=== PATIENT | female | born 1940 | race Caucasian/White ===

== ENCOUNTER → 2017-08-03 | Outpatient (CLI) | payer MEDICARE ==
[2016-12-22 08:38] VITALS: BMI 32.7
[~2017-08-03] MED LIST: ASPI-764 PO; CALC-857 PO; CHOL10005 PO; HYDR-4308 PO; METF-410 PO; TURM500C4 PO
[2017-08-03 09:25] LABS: PLATELET COUNT, AUTOMATED 190 K/uL (150-450)
== END ==
LOC: LAB 08:48
PROVIDERS: ATTEND Orthopaedic Surgery
DX: Z01.812 Encounter for preprocedural laboratory examination (principal); M17.11 Unilateral primary osteoarthritis, right knee; N39.0 Urinary tract infection, site not specified; E11.9 Type 2 diabetes mellitus without complications; R82.79 Other abnormal findings on microbiological examination of urine
CPT/HCPCS: 36415; 81001; 82040; 82247; 82310; 82374; 82435; 82565; 82947; 83036; 84075; 84132; 84155; 84295; 84450; 84460; 84520; 85025; 87088

== ENCOUNTER 2017-08-16 02:45 | Observation (INO) | payer MEDICARE ==
[2017-08-15 14:07] LABS: INR 0.97
[~2017-08-16] VITALS: Ht 149.9 cm; Wt 73.9 kg
[2017-08-16] VITALS (15 sets, daily range): BP systolic 112–154; BP diastolic 57–105
[2017-08-16] MEDS ORDERED: LIDOCAINE MPF 1% 5 ML VIAL ONE (13:04)
[2017-08-16] MEDS ORDERED: fentaNYL CITR 100 MCG/2 ML AMP ONE (13:04)
[2017-08-16] MEDS ORDERED: ONDANSETRON 4 MG/2 ML VIAL ONE (13:04)
[2017-08-16] MEDS ORDERED: DEXAMETHASONE SOD 4 MG/ML VIAL ONE (13:04)
[2017-08-16] MEDS ORDERED: PROPOFOL EMUL(*) 10MG/ML 20 ML 20 ML ONE (13:04)
[2017-08-16] MEDS ORDERED: NORMOSOL R SOLN(*) 1000 ML BAG 1,000 ML IV PRN ×2 (14:15→17:45)
[2017-08-16] MEDS ORDERED: LIDOCAINE/SOD BICARB 8.4% SYR ID ONE (14:15)
[2017-08-16] MEDS ORDERED: cloNIDine EPIDUR INJ 100MCG/ML 40 MCG, ROPIVACAINE 0.5% 20 ML VIAL 25 ML, EPINEPHrine H... INJ ONE (14:15)
[2017-08-16] MEDS ORDERED: TRANEXAMIC AC 1000 MG/10ML SDV 1,000 MG in DEXTROSE 5% 50 ML BAG 50 ML IV ONE (14:15)
[2017-08-16] MEDS ORDERED: CLINDAMYCIN(*) 900 MG/NS 50 ML 50 ML IVPB ONE (14:15)
[2017-08-16] MEDS ORDERED: MIDAZOLAM 2 MG/2 ML VIAL IVP PRN (14:15)
[2017-08-16] MEDS ORDERED: FAMOTIDINE 20 MG TAB PO ONE (14:15)
[2017-08-16] MEDS ORDERED: MORPHINE PF 5 MG/10 ML AMP ONE (14:42)
[2017-08-16] MEDS ORDERED: KETAMINE HCL 200 MG/20 ML MDV ONE (14:50)
[2017-08-16] MEDS ORDERED: NS 0.9% 3000 ML IRRIGATION BAG IR ONE (15:27)
[2017-08-16] MEDS ORDERED: NS 0.9% IRRIGATION 1000ML PLCT IR ONE (15:31)
[2017-08-16] MEDS ORDERED: ePHEDrine 25 MG/5 ML DISP.SYR IVP ONE (15:33)
--- NOTE | 2017-08-16 17:19 | RADIOLOGY IMAGING REPORT ---
FACILITY: [facility] PATIENT NAME: Lindsay Rush : 1940 MR: [id number] V: [id number] EXAM DATE: [id number] ORDERING PHYSICIAN: ASPEN MONK TECHNOLOGIST: [facility] Patient: Lindsay Rush : 1940 Visit/Account:[id number] Date of Sevice: 08/16/2017 Exam type: 2 views right knee History: Status post right knee arthroplasty Comparison: None. Findings: Postoperative changes are noted from right knee arthroplasty without hardware complication. Patient i s remarkably osteopenic. Air within the joint is noted. Subcutaneous air is also noted. IMPRESSION: 1. Postoperative changes are noted from right knee arthroplasty without hardware complication. 2. Osteopenia. Report Dictated By: Jori Chavez MD at 08/16/2017 5:15 PM Report E-Signed By: Jori Chavez MD at 08/16/2017 5:16 PM WSN:[id number]
[2017-08-16] MEDS ORDERED: FLUSH 10 ML SYR IVP PRN (17:45)
[2017-08-16] MEDS ORDERED: NALOXONE HCL 0.4 MG/ML VIAL IVP PRN ×2 (17:45→17:55)
[2017-08-16] MEDS ORDERED: BISACODYL 10 MG SUPP PR PRN (17:45)
[2017-08-16] MEDS ORDERED: MORPHINE SULFATE 30 MG PCA IV PRN (17:45)
[2017-08-16] MEDS ORDERED: ONDANSETRON 4 MG/2 ML VIAL IVP PRN ×2 (17:45→17:55)
[2017-08-16] MEDS ORDERED: MAGNESIUM HYDROXIDE* 30ML UDCP PO PRN (17:45)
[2017-08-16] MEDS ORDERED: NALBUPHINE HCL 10 MG/ML AMP IVP PRN (17:55)
[2017-08-16] MEDS ORDERED: diphenhydrAMINE 25 MG CAP PO PRN (17:55)
[2017-08-16] MEDS: ACETAMINOPHEN 325 MG TAB PO SCH (18:09)
--- NOTE | 2017-08-16 20:32 | Hospitalist Consultation ---
History of Present Illness Requesting Physician Dr. Patel Reason for Consult Diabetes mellitus History of Present Illness This patient was admitted for knee replacement surgery. It is reported that the surgery went well and was without complication. History Problems: (1) DM2 (diabetes mellitus, type 2) Home Meds Reported Medications Calcium Citrate/Vitamin D3 (CITRACAL-VIT D 200 MG-250 TAB) 1 Each Tablet, 2 EACH PO DAILY 12/14/16 Cholecalciferol (Vitamin D3) (VITAMIN D3) 1,000 Unit Tablet, 1000 UNIT PO DAILY , TAB 12/14/16 Metformin Hcl (METFORMIN HCL) 500 Mg Tablet, 1 TAB PO QDAY, TAB 12/14/16 Discontinued Reported Medications Hydrocodone Bit/Acetaminophen (NORCO 7.5-325 TABLET) 1 Each Tablet, 1-2 EACH PO Q6H for PAIN, #60 12/24/16 Turmeric Root Extract (Turmeric) 500 Mg Capsule, 1000 PO QDAY 12/14/16 Discontinued Scripts Aspirin (ASPIRIN EC) 325 Mg Tablet., 325 MG PO QDAY for 30 Days, #30 TAB 0 Refills Take one aspirin daily for 30 days following surgery. Prov:AVIS JOHNS MD 12/24/16 Allergies: Coded Allergies: amoxicillin (Verified Allergy, Mild, RASH, 12/14/16) Sulfa (Sulfonamide Antibiotics) (Verified Adverse Reaction, Mild, STOMACH UPSET , 12/14/16) tramadol (Verified Adverse Reaction, Mild, NAUSEA , 08/12/17) corn (Verified Adverse Reaction, Unknown, STOMACH UPSET , 12/14/16) Patient History: FH: dementia MOTHER FH: diabetes mellitus GRANDMOTHER FH: lung cancer FATHER Hx Smoking: No Smoking Status: Never Smoker Exposure to Second Hand Smoke?: Yes (NOT CURRENTLY PARENTS WERE SMOKERS ) Caffeine Intake: Coffee Caffeine/Cups Per Day: 1 CUP A DAY Hx Alcohol Use: No Hx Substance Use Disorder: No Social Drug Use: Never History of IV Drug Use: No Review of Systems All Systems Reviewed/Normal: Yes Exam Vital Signs Vital Signs Date Time Temp Pulse Resp B/P (MAP) Pulse Ox O2 Delivery O2 Flow Rate FiO2 08/16/17 19:15 83 139/78 (98) Nasal Cannula 3.0 08/16/17 18:30 98.2 12 90 Neuro: No Gross deficits Cardiovascular: Regular Rate and Rhythm Respiratory: Clear to Auscultation Extremities: No Edema Integumentary: No Cyanosis Assessment and Plan Problems: (1) S/P knee replacement Assessment & Plan: She is on aspirin prophylaxis. (2) DM2 (diabetes mellitus, type 2) Assessment & Plan: She is on chronic treatment with metformin. We have also ordered fingerstick glucoses and sliding scale level 1. Venous Thromboembolism Antithrombotics Is Pt On Any Antithrombotics?: No ILIANA HASSAN DO Aug 16, 2017 20:32
[2017-08-16] MEDS: PROMETHAZINE 25 MG/ML 1 ML AMP IVP PRN (21:55)
[2017-08-16] MEDS: INSULIN HUM LISPRO 100 UN/ML 3 ML VIAL SUBQ PRN (22:00)
[2017-08-16] MEDS ORDERED: CLINDAMYCIN 600 MG/4 ML 600 MG in DEXTROSE 5% 50 ML BAG 50 ML IVPB SCH (22:00)
[2017-08-16] MEDS ORDERED: CINN1CAP PO (22:16)
[2017-08-16] MEDS: CLINDAMYCIN(*) 600 MG/NS 50 ML 50 ML IVPB SCH (22:27)
[2017-08-17] VITALS (8 sets, daily range): BP systolic 105–140; BP diastolic 51–81; Ht 149.9 cm; Wt 73.9 kg
[2017-08-17] MEDS: ACETAMINOPHEN 325 MG TAB PO SCH ×5 (00:16→23:44)
[2017-08-17] MEDS ORDERED: CLINDAMYCIN 600 MG/4 ML 600 MG in DEXTROSE 5% 50 ML BAG 50 ML IVPB SCH (01:00)
[2017-08-17] MEDS: oxyCODONE HCL 5 MG CAP PO PRN ×4 (01:54→23:44)
[2017-08-17] MEDS: CLINDAMYCIN(*) 600 MG/NS 50 ML 50 ML IVPB SCH ×2 (06:23→14:44)
[2017-08-17] MEDS: INSULIN HUM LISPRO 100 UN/ML 3 ML VIAL SUBQ PRN (08:01)
[2017-08-17] MEDS: metFORMIN HCL 500 MG TAB PO SCH (08:24)
[2017-08-17] MEDS: ASPIRIN 325 MG ENTERIC COATED PO SCH (08:24)
--- NOTE | 2017-08-17 10:39 | Hospitalist Progress Note ---
Subjective Progress Notes Subjective Mrs. Rush is a 76 y.o. female with PMH of Pre Diabetes and she is on Metformin. This patient was admitted by Dr. aPtel for R-knee replacement surgery. It is reported that the surgery went well and was without complication. 08/17: She is afebrile and hemodynamically stable today. Her BS is in 200 and she has some pain and she is on Metformin. She denies any complaint today. Patient Complains of: Neurological: No: Confusion, Weakness, Dizziness Cardiovascular: No: Chest Pain, Palpitations Respiratory: No: Cough, Congestion, Shortness of Breath Gastrointestinal: No Nausea, No Vomiting Genitourinary: No Dysuria, No Hematuria Musculoskeletal: Pain, Impaired Mobility, No: Sprain, Strain Physical Exam Vital Signs Date Time Temp Pulse Resp B/P (MAP) Pulse Ox O2 Delivery O2 Flow Rate FiO2 08/17/17 07:20 97.7 76 16 105/51 (69) 96 Nasal Cannula 2.0 Intake and Output 08/18/17 07:00 Intake Total 50 ml Balance 50 ml Intake Oral 0 ml IV Total 50 ml # Voids 1 General Appearance: Alert, Awake, No Acute Distress, Afebrile Neuro: No Gross deficits Cardiovascular: No Edema Respiratory: No Respiratory Distress GI: Soft and Non-Tender Extremities: Soft and Non Tender (mild tender R-knee) Psych: Alert & Oriented X3, Appropriate Mood & Affect Result Diagram: 08/17/17 0516 Assessment and Plan Problems: (1) S/P knee replacement Status: Acute Assessment & Plan: She is on aspirin prophylaxis. 08/17: I will keep her ASA 325mg daily for her DVT prophylaxis and continue her PT/OT as per surgery (2) DM2 (diabetes mellitus, type 2) Status: Chronic Assessment & Plan: 08/17: She is currently on Metformin and Step-1 sliding scale to control her BS. I will continue the current management Condition stable Time Spent on Plan of Care: < 30 min Copies to: ASPEN PATEL MD Exam Sepsis Risk: No Definite Risk Problem Qualifiers (1) S/P knee replacement: Laterality: right Qualified Codes: Z96.651 - Presence of right artificial knee joint IKE WESLEY MD Aug 17, 2017 10:39
[2017-08-17] MEDS: MORPHINE 2 MG/ML SYR IVP PRN ×2 (14:49→21:19)
--- NOTE | 2017-08-17 16:45 | OPERATIVE REPORT 1 ---
EVENT DATE: August 16, 2017 SURGEON: Zander Patel MD ANESTHESIOLOGIST: Fabian Griffin MD ANESTHESIA: Spinal followed by general. We utilized 1 g of IV tranexamic acid 10 minutes prior to start and at the end of the implantation. We also utilized 50 mL of our standard ropivacaine and Toradol cocktail. MACHINE SET UP TECHNICIAN: ANGUS Robert PREOPERATIVE DIAGNOSIS Right knee degenerative joint disease, varus alignment. POSTOPERATIVE DIAGNOSIS Right knee degenerative joint disease, varus alignment. PROCEDURE PERFORMED Right total knee arthroplasty. IMPLANTS USED MicroPort medial pivot-shift CS system with a 3 femur, 3 tibia, 12 mm CS insert , 8 x 29 symmetric patella. Femur was cut at 6 degrees valgus, 10 mm. We utilized two packages of DonJoy [place] Blue cement and ZipLine wound suture closure system. SPECIMENS None. COMPLICATIONS None. BLOOD LOSS Less than 200 mL. DESCRIPTION OF OPERATION The patient received the appropriate preoperative antibiotic. She was brought to the OR where Dr. Griffin performed spinal, followed by general anesthesia. A right thigh tourniquet was placed. The right lower extremity was prepped and draped in the usual sterile fashion. A midline incision was made, followed by a medial parapatellar arthrotomy. Utilizing the Bovie, we dissected subperiosteally around the medial tibial plateau to the level of the semimembranosus insertion. Laterally, we excised the fat pad, released the patella, and everted this. We noted eburnation on the tibial plateau and grade III and IV changes of the medial femoral condyle, and grade II and III changes with a few areas of grade IV in the patellofemoral compartment. The knee was brought up into flexion. The ACL and PCL were released subperiosteally by Bovie. The sagittal saw was utilized to remove the remaining articular cartilage from the distal femoral condyles. The step cut drill was utilized to broach the canal. We then placed our intramedullary femoral guide. We set up our cutting block at 6 degrees valgus, 10 mm, and with care taken to protect the soft tissue, we made our distal cut. The 30-degree external rotation block and sizer was then positioned referencing off the anterior flange, epicondyles, and posterior condyles. We sized the femur to a #3 and drilled our 3-degree external rotation holes. We placed our four-in-one cutting block, placed Z retractors to protect the soft tissue, and made our four cuts. The tibia was brought anteriorly to the femur, and with appropriate retractors, we broached the canal with the step cut drill. We placed our tibial intramedullary guide. We referenced 10 mm off the least involved lateral tibial plateau and pinned the block into place after referencing for rotation. With care taken to protect the soft tissues with Z retractors, we made our tibial cut. The stumps of the ACL, PCL, medial and lateral meniscus were removed by Bovie, followed by a curved osteotome for posterior osteophytes and Meyer elevator for capsule elevation. We then placed our trial tibial baseplate. After referencing from previous rotation, we pinned this into place. We placed first a 10 and then a 12 mm insert in our femur. We were able to achieve full extension, flexion limited only by body habitus, stability with varus and valgus stress, and anterior drawer was solid at 90 degrees. We then placed the knee in full extension. We measured the patella at 21 mm. We cut this down 6 mm. This accepted an 8 x 29 peg hole trial which was positioned inferiorly and medially. The peg holes were drilled, and this accepted our patella. The knee was flexed, and the peg holes were drilled for the femur, followed by cutting for the trochlear chip which was then placed. Again, we had the aforementioned range of motion and stability, and the patella tracked well. The patella, femur , and patella inserts were removed. We placed appropriate retractors bringing the tibia anteriorly, and we set our tibial tower for the keel. We cut, reamed , and punched for this. This instrumentation was removed. A bone plug was placed in the distal femur. While we mixed two packages of DonJoy [place] Blue cement, we copiously irrigated by pulse lavage and injected 10 mL of our cocktail into the posterior capsule region. We then brought the knee up to the appropriate position, irrigated once again, and dried the bone with laps. Then starting with the tibia, we cemented this into place, followed by our permanent 12 mm CS insert. We then cemented the femur, and excess cement was removed from both sides of the joint. The knee was brought into full extension with sterile compression while we cemented the patella. After 14 minutes, the cement had hardened. Again, we had the aforementioned range of motion and stability. We copiously irrigated by pulse lavage once again and then injected remaining the 40 mL of our cocktail in the distal quad mechanism. We then set the knee up at 30 degrees of flexion and closed the arthrotomy with #2 Vicryl in [id number] suture fashion, followed by 2-0 Vicryl for the subcutaneous tissues. The wounds were then cleaned. The knee was placed at 45 degrees, and we applied our ZipLine wound closure system. We then applied a compressive dressing. The patient was extubated and taken to recovery in stable condition. PLAN The hospitalist team will be consulted for medical management and anticoagulation, PT and OT for rehab. LELAND
[2017-08-18] MEDS: MORPHINE 2 MG/ML SYR IVP PRN (01:51)
[2017-08-18 04:42] VITALS: BP 150/82
[2017-08-18] MEDS: ACETAMINOPHEN 325 MG TAB PO SCH ×3 (05:44→18:44)
[2017-08-18] MEDS: oxyCODONE HCL 5 MG CAP PO PRN ×3 (05:45→20:34)
[2017-08-18 07:28] VITALS: BP 146/76
[2017-08-18] MEDS: metFORMIN HCL 500 MG TAB PO SCH (08:32)
[2017-08-18] MEDS: ASPIRIN 325 MG ENTERIC COATED PO SCH (08:33)
--- NOTE | 2017-08-18 09:31 | Hospitalist Progress Note ---
Subjective Progress Notes Subjective She states that she has not had a bowel movement. She would like some Colace. She has no other complaints this morning. Patient Complains of: Cardiovascular: No: Chest Pain Respiratory: No: Shortness of Breath Physical Exam Vital Signs Date Time Temp Pulse Resp B/P (MAP) Pulse Ox O2 Delivery O2 Flow Rate FiO2 08/18/17 08:51 94 Nasal Cannula 1.5 08/18/17 07:28 98.6 84 18 146/76 (99) Intake and Output 08/19/17 07:00 Intake Total 250 ml Balance 250 ml Intake Oral 250 ml General Appearance: Alert, Awake, No Acute Distress, Afebrile Cardiovascular: Regular Rate and Rhythm Respiratory: No Respiratory Distress, Clear to Auscultation Psych: Alert & Oriented X3, Appropriate Mood & Affect Result Diagram: 08/18/17 0506 Assessment and Plan Problems: (1) S/P knee replacement Status: Acute Assessment & Plan: She will take ASA 325mg daily for her DVT prophylaxis and continue her PT/OT as per surgery. (2) DM2 (diabetes mellitus, type 2) Status: Chronic Assessment & Plan: She is on chronic treatment with Metformin. She will get twice daily blood sugars. Exam Sepsis Risk: No Definite Risk Problem Qualifiers (1) S/P knee replacement: Laterality: right Qualified Codes: Z96.651 - Presence of right artificial knee joint TANIKA JORDAN Aug 18, 2017 09:31
[2017-08-18] MEDS: DOCUSATE SODIUM 100 MG CAP PO SCH ×2 (10:05→20:34)
[2017-08-18 11:14] VITALS: BP 138/79
[2017-08-18] MEDS: PROMETHAZINE 25 MG/ML 1 ML AMP IVP PRN (12:47)
[2017-08-18] MEDS ORDERED: CYCLOBENZAPRINE HCL 10 MG TAB PO PRN (14:30)
[2017-08-18 15:45] VITALS: BP 158/70
[2017-08-18 19:21] VITALS: BP 142/91
[2017-08-18 19:38] VITALS: BP 140/93
[2017-08-19] MEDS: oxyCODONE HCL 5 MG CAP PO PRN ×2 (02:48→10:11)
[2017-08-19 02:49] VITALS: BP 144/75
[2017-08-19] MEDS: ACETAMINOPHEN 325 MG TAB PO SCH ×3 (05:44→11:49)
[2017-08-19 07:53] VITALS: BP 122/85
[2017-08-19] MEDS ORDERED: OXYC-869 PO (08:01)
[2017-08-19] MEDS: DOCUSATE SODIUM 100 MG CAP PO SCH (09:16)
[2017-08-19] MEDS: ASPIRIN 325 MG ENTERIC COATED PO SCH (09:16)
[2017-08-19] MEDS: metFORMIN HCL 500 MG TAB PO SCH (09:16)
[2017-08-19] MEDS ORDERED: ASPI-764 PO (09:31)
--- NOTE | 2017-08-19 09:33 | Hospitalist Progress Note ---
Subjective Progress Notes Subjective She has no complaints this morning. She states she is ready to go home. Patient Complains of: Cardiovascular: No: Chest Pain Respiratory: No: Shortness of Breath Physical Exam Vital Signs Date Time Temp Pulse Resp B/P (MAP) Pulse Ox O2 Delivery O2 Flow Rate FiO2 08/19/17 07:53 97.8 83 16 122/85 (97) 93 Nasal Cannula 1.0 Intake and Output 08/20/17 07:00 Intake Total 0 ml Balance 0 ml Intake Oral 0 ml General Appearance: Alert, Awake, No Acute Distress, Afebrile Cardiovascular: Regular Rate and Rhythm Respiratory: No Respiratory Distress, Clear to Auscultation Psych: Alert & Oriented X3, Appropriate Mood & Affect Result Diagram: 08/19/17 0504 Assessment and Plan Problems: (1) S/P knee replacement Status: Acute Assessment & Plan: She will take ASA 325mg daily for her DVT prophylaxis and continue her PT/OT as per surgery. (2) DM2 (diabetes mellitus, type 2) Status: Chronic Assessment & Plan: She is on chronic treatment with Metformin. Exam Sepsis Risk: No Definite Risk Problem Qualifiers (1) S/P knee replacement: Laterality: right Qualified Codes: Z96.651 - Presence of right artificial knee joint TANIKA JORDAN Aug 19, 2017 09:33
== END 2017-08-19 12:47 | disposition home or self-care (01) ==
LOC: OR 02:45 → MED 18:25
PROVIDERS: ADMIT Orthopaedic Surgery; ATTEND Orthopaedic Surgery
DX: M17.11 Unilateral primary osteoarthritis, right knee (principal); E11.9 Type 2 diabetes mellitus without complications; E78.00 Pure hypercholesterolemia, unspecified
CPT/HCPCS: 27447; 36415; 36416; 73560; 82948; 85014; 85018; 85610; 86850; 86900; 86901; 96372; 97110; 97116; 97161; 97530; A9270; C1713; C1776; G0378; J0171; J0735; J1100; J1815; J1885; J2001; J2250; J2270; J2405; J2550; J2704; J2795; J3010; J3490; J7050; J7060; Q0163